=== PATIENT | female | born 1955 | race Caucasian/White ===

== ENCOUNTER 2023-06-15 12:24 | Outpatient (CLI) | payer MEDICARE, OTHER | END 2023-06-15 12:25 | disposition home or self-care (01) | LOC: NAV CT 12:24 | PROVIDERS: ATTEND Family Medicine | DX: R10.9 Unspecified abdominal pain (principal); N13.30 Unspecified hydronephrosis; N20.2 Calculus of kidney with calculus of ureter; N28.1 Cyst of kidney, acquired; N28.89 Other specified disorders of kidney and ureter; D17.71 Benign lipomatous neoplasm of kidney | CPT/HCPCS: 74176 ==